=== PATIENT | male | born 1940 | race Hispanic/Latino ===

== ENCOUNTER → 2020-03-14 | Outpatient (CLI) | payer MEDICARE | END | disposition home or self-care (01) | LOC: SHCH 15:04 | PROVIDERS: ATTEND Internal Medicine Cardiovascular Disease | DX: I87.2 Venous insufficiency (chronic) (peripheral) (principal); E78.5 Hyperlipidemia, unspecified | CPT/HCPCS: 93970 ==

== ENCOUNTER → 2021-11-23 | Outpatient (CLI) | payer MEDICARE | END | disposition home or self-care (01) | LOC: SHCH 14:07 | PROVIDERS: ATTEND Internal Medicine Cardiovascular Disease | DX: I35.0 Nonrheumatic aortic (valve) stenosis (principal); I51.7 Cardiomegaly | CPT/HCPCS: 93306 ==

== ENCOUNTER → 2023-04-18 | Outpatient (CLI) | payer MEDICARE | END | disposition home or self-care (01) | LOC: RAH 09:34 | PROVIDERS: ATTEND Urology | DX: N50.812 Left testicular pain (principal); N13.30 Unspecified hydronephrosis | CPT/HCPCS: 76870 ==

== ENCOUNTER → 2023-10-29 | Outpatient (CLI) | payer MEDICARE ==
[~2023-10-29] MED LIST: IOHEXOL 350 MG/ML 100ML INFUS..BTL IV ONE
== END | disposition home or self-care (01) ==
LOC: RAH 09:48 → EDSTATUS 10:00
PROVIDERS: ATTEND Student in an Organized Health Care Education/Training Program
DX: I70.203 Unspecified atherosclerosis of native arteries of extremities, bilateral legs (principal); I25.10 Atherosclerotic heart disease of native coronary artery without angina pectoris; M47.815 Spondylosis without myelopathy or radiculopathy, thoracolumbar region; K57.30 Diverticulosis of large intestine without perforation or abscess without bleeding
CPT/HCPCS: 75635; Q9967

== ENCOUNTER → 2024-02-04 | Outpatient (CLI) | payer MEDICARE ==
[2024-02-04 16:13] LABS: BASOPHILS # (AUTO) 0.03 K/uL (0.00-0.20); BASOPHILS % (AUTO) 0.5 % (0.0-5.0); EOSINOPHILS # (AUTO) 0.29 K/uL (0.00-0.70); EOSINOPHILS % (AUTO) 5.3 % (0.0-8.0); HEMATOCRIT 31.3 % (42-54); IMMATURE GRANULOCYTE ABSOLUTE 0.02 K/uL (0-1); LYMPHOCYTES # (AUTO) 1.8 K/uL (1.0-4.8); LYMPHOCYTES % (AUTO) 31.9 % (21.0-51.0); MEAN CORPUSCULAR HEMOGLOBIN 36.3 pg (27.0-33.0); MEAN CORPUSCULAR HGB CONC 33.5 g/dL (32.0-36.0); MEAN CORPUSCULAR VOLUME 108.3 fL (79-99); MONOCYTES # (AUTO) 0.4 K/uL (0.1-1.0); MONOCYTES % (AUTO) 7.2 % (3.0-13.0); NEUTROPHILS % (AUTO) 54.7 % (40.0-77.0); PLATELET COUNT (AUTO) 150 K/uL (130-400); RED BLOOD CELL COUNT(AUTO) 2.89 MIL/uL (4.50-6.20); RED CELL DISTRIBUTION WIDTH 14.8 % (11.0-15.5); WHITE BLOOD COUNT (AUTO) 5.5 K/uL (4.8-10.8)
[2024-02-04 16:22] LABS: CREATININE 4.1 mg/dL (0.5-1.3); POTASSIUM 4.5 mmol/L (3.5-5.1)
[2024-02-04 16:23] LABS: INR 1.06 (0.85-1.15); PROTHROMBIN TIME 11.4 SEC (9.6-11.6)
== END | disposition home or self-care (01) ==
LOC: LAB 15:08
PROVIDERS: ATTEND Student in an Organized Health Care Education/Training Program
DX: Z01.812 Encounter for preprocedural laboratory examination (principal); I73.9 Peripheral vascular disease, unspecified; Z79.899 Other long term (current) drug therapy; M79.89 Other specified soft tissue disorders
CPT/HCPCS: 36415; 80048; 85025; 85610; 85730

== ENCOUNTER → 2024-07-23 | Outpatient (CLI) | payer MEDICARE ==
[~2024-07-23] MED LIST changes: -IOHEXOL 350 MG/ML 100ML INFUS..BTL IV ONE; +IOHEXOL-350 75 ML VIAL IV ONE
--- NOTE | 2024-07-23 16:44 | HMCIMG ---
US SCROTUM & CONTENTS HISTORY: Disorder of male genital organs COMPARISON: None TECHNIQUE: Duplex scrotal ultrasound study was performed. FINDINGS: The right testes measures 3.1 x 1.6 x 1.8 cm. The left testes measures 2.7 x 2.1 x 2.2 cm. No evidence of intratesticular mass or abnormal calcification is seen. Normal flow is demonstrated in the testes bilaterally. In the left epididymis. Right epididymis is not well visualized. 6 small left hydrocele is seen. IMPRESSION: 1. No evidence of intratesticular mass is seen. 2. Normal flow is demonstrated of both testes. Small left hydrocele.
== END | disposition home or self-care (01) ==
LOC: RAH 13:47
PROVIDERS: ATTEND Urology
DX: N43.3 Hydrocele, unspecified (principal); N50.9 Disorder of male genital organs, unspecified
CPT/HCPCS: 76870; Q9967